=== PATIENT | male | born 1950 ===

== ENCOUNTER → 2017-11-19 | Outpatient (CLI) | payer OTHER | END | disposition home or self-care (01) | LOC: PCVCIMAG 16:21 | DX: I25.10 Atherosclerotic heart disease of native coronary artery without angina pectoris (principal); R06.00 Dyspnea, unspecified; E83.59 Other disorders of calcium metabolism; E78.5 Hyperlipidemia, unspecified | CPT/HCPCS: 93325; 93351 ==